=== PATIENT | female | born 1955 | race Caucasian/White ===

== ENCOUNTER 2022-10-29 09:23 | Observation (INO) ==
[2022-10-29] MEDS ORDERED: NITROGLYCERIN SL 0.4 MG TABLET SL PRN (10:06)
[2022-10-29] MEDS ORDERED: ASPIRIN 325 MG TABLET PO STA (10:06)
[2022-10-29 11:36] LABS: Basophils # 0.1 10*3/uL (0.0-0.2); Basophils % 0.4 % (0.0-0.8); Hematocrit 39.1 VOL% (35.7-47.0); Hemoglobin 13.2 GM/DL (12.0-16.0); Immature Granulocytes % 0.4 %; Immature Granulocytes Absolute 0.07 #; Lymphocytes # 1.6 10*3/uL (1.4-4.0); Lymphocytes % 10.1 % (21.3-54.2); Mean Corpuscular HGB Conc 33.8 GM/DL (32-36); Mean Corpuscular Volume 90.1 FL (87-102); Mean Platelet Volume 10.6 FL (9.6-12.0); Monocytes # 1.1 10*3/uL (0.11-0.8); Monocytes % 7.2 % (1.7-12.7); Neutrophils % 81.9 % (38.7-73.9); Platelet Count 212 T/CUMM (130-400); Red Blood Count 4.34 MC/CUMM (3.8-5.5); Red Cell Distribution Width 13.9 % (9.3-17.3); White Blood Count 15.8 T/CUMM (4-12)
[2022-10-29 11:51] LABS: PT Patient Result 10.8 SECS (10.1-12.1); Partial Thromboplastin Time 22.2 SECS (23.7-32.9)
[2022-10-29 11:54] LABS: Calcium 8.9 MG/DL (8.5-10.1); Osmolality,Calculated 281.3 MOS/KG (273-304); Potassium 3.5 MMOL/L (3.5-5.1)
[2022-10-29] MEDS ORDERED: ENOXAPARIN 40 MG/0.4 ML SYRINGE SUBCUT STA (12:18)
[2022-10-29] MEDS ORDERED: ONDANSETRON 4 MG/2 ML VIAL IV PRN (13:03)
[2022-10-29] MEDS ORDERED: ACETAMINOPHEN 325 MG TABLET PO PRN (13:03)
[2022-10-29] MEDS ORDERED: hydrALAZINE 20 MG/1 ML VIAL IV PRN (13:03)
[2022-10-29] MEDS ORDERED: MORPHINE 2 MG/1 ML SYRINGE IV PRN (13:03)
[2022-10-29] MEDS ORDERED: ALBUTEROL/IPRATROPIUM 3 ML NEB RESP TX PRN (13:03)
[2022-10-29] MEDS ORDERED: MAGNESIUM SULF RIDER 2 GM/50 ML PREMIX IV ONE (14:21)
[2022-10-29] MEDS: METOPROLOL TARTRATE 25 MG TABLET PO SCH ×2 (17:05→22:46)
[2022-10-29] MEDS: ENOXAPARIN 40 MG/0.4 ML SYRINGE SUBCUT SCH (22:46)
[2022-10-29] MEDS: ROSUVASTATIN 20 MG TABLET PO SCH (22:46)
[2022-10-30] MEDS: METOPROLOL TARTRATE 25 MG TABLET PO SCH ×3 (04:11→20:15)
[2022-10-30 06:35] LABS: Basophils # 0.1 10*3/uL (0.0-0.2); Eosinophils # 0.1 10*3/uL (0.0-0.87); Eosinophils % 0.9 % (0.00-10.9); Hematocrit 38.8 VOL% (35.7-47.0); Immature Granulocytes % 0.2 %; Immature Granulocytes Absolute 0.02 #; Lymphocytes # 2.5 10*3/uL (1.4-4.0); Lymphocytes % 25.8 % (21.3-54.2); Mean Corpuscular HGB Conc 33.5 GM/DL (32-36); Mean Corpuscular Volume 91.5 FL (87-102); Monocytes # 0.8 10*3/uL (0.11-0.8); Neutrophils % 64.1 % (38.7-73.9); Platelet Count 209 T/CUMM (130-400); Red Blood Count 4.24 MC/CUMM (3.8-5.5); White Blood Count 9.6 T/CUMM (4-12)
[2022-10-30 07:22] LABS: Calcium 8.8 MG/DL (8.5-10.1); Osmolality,Calculated 282.1 MOS/KG (273-304); Potassium 4.1 MMOL/L (3.5-5.1); Risk Ratio 1.04; Thyroid Stimulating Hormone 0.668 uIU/ml (0.358-3.74)
[2022-10-30] MEDS ORDERED: ENOXAPARIN 40 MG/0.4 ML SYRINGE SUBCUT SCH (09:00)
[2022-10-30] MEDS: NICOTINE 21 MG/24 HR PATCH TRANSDERM SCH (09:16)
[2022-10-30] MEDS: ENOXAPARIN 40 MG/0.4 ML SYRINGE SUBCUT SCH ×2 (09:18→20:08)
[2022-10-30] MEDS: ASPIRIN CHEW 81 MG TABLET PO SCH (09:18)
[2022-10-30] MEDS: PANTOPRAZOLE 40 MG TABLET PO SCH (09:18)
[2022-10-30] MEDS ORDERED: DIAZEPAM 5 MG TABLET PO ONE (11:16)
[2022-10-30] MEDS ORDERED: diphenhydrAMINE CAP 50 MG CAPSULE PO ONE (11:16)
[2022-10-30] MEDS ORDERED: POTASSIUM CHLORIDE RIDER 10 MEQ/100 ML PREMIX IV PRN (11:16)
[2022-10-30] MEDS ORDERED: MAGNESIUM SULF RIDER 2 GM/50 ML PREMIX IV PRN (11:16)
[2022-10-30] MEDS: SODIUM CHLORIDE 0.9% 1,000 ML IV SCH ×2 (11:27→16:10)
[2022-10-30] MEDS ORDERED: MIDAZOLAM 2 MG/2 ML VIAL ONE (11:42)
[2022-10-30] MEDS ORDERED: HYDROmorphone 1 MG/1 ML SYRINGE ONE (11:43)
[2022-10-30] MEDS: ROSUVASTATIN 20 MG TABLET PO SCH (20:08)
[2022-10-31 05:40] LABS: Basophils # 0.1 10*3/uL (0.0-0.2); Basophils % 1.1 % (0.0-0.8); Eosinophils # 0.2 10*3/uL (0.0-0.87); Eosinophils % 2.1 % (0.00-10.9); Hematocrit 37.1 VOL% (35.7-47.0); Hemoglobin 11.9 GM/DL (12.0-16.0); Immature Granulocytes % 0.3 %; Immature Granulocytes Absolute 0.02 #; Lymphocytes % 27.9 % (21.3-54.2); Mean Corpuscular HGB Conc 32.1 GM/DL (32-36); Mean Corpuscular Volume 93.7 FL (87-102); Mean Platelet Volume 11.4 FL (9.6-12.0); Monocytes # 0.6 10*3/uL (0.11-0.8); Neutrophils % 60.6 % (38.7-73.9); Platelet Count 184 T/CUMM (130-400); Red Blood Count 3.96 MC/CUMM (3.8-5.5); Red Cell Distribution Width 14.2 % (9.3-17.3); White Blood Count 7.1 T/CUMM (4-12)
[2022-10-31 06:03] LABS: Calcium 8.8 MG/DL (8.5-10.1); Osmolality,Calculated 288.7 MOS/KG (273-304); Potassium 3.9 MMOL/L (3.5-5.1)
[2022-10-31] MEDS ORDERED: DEXTROSE 10% 250 ML BAG IV PRN (07:05)
[2022-10-31] MEDS: SODIUM CHLORIDE 0.9% 1,000 ML IV SCH (08:50)
[2022-10-31] MEDS ORDERED: LOSARTAN 25 MG TABLET PO SCH (09:00)
[2022-10-31] MEDS ORDERED: predniSONE 5 MG TABLET PO SCH (09:00)
[2022-10-31] MEDS ORDERED: LEFLUNOMIDE 20 MG PO SCH (09:00)
[2022-10-31] MEDS: NICOTINE 21 MG/24 HR PATCH TRANSDERM SCH (09:03)
[2022-10-31] MEDS: PANTOPRAZOLE 40 MG TABLET PO SCH (09:05)
[2022-10-31] MEDS: ASPIRIN CHEW 81 MG TABLET PO SCH (09:05)
[2022-10-31] MEDS: METOPROLOL TARTRATE 25 MG TABLET PO SCH (09:06)
[2022-10-31] MEDS: ENOXAPARIN 40 MG/0.4 ML SYRINGE SUBCUT SCH (09:06)
[2022-10-31] MEDS ORDERED: APIXABAN 2.5 MG TABLET PO SCH (10:30)
[2022-10-31] MEDS ORDERED: CLOPIDOGREL 75 MG TABLET PO SCH (10:30)
[2022-10-31 12:01] VITALS: BP 90/62
[2022-11-01] MEDS ORDERED: DAPAGLIFLOZIN 10 MG TABLET PO SCH (09:00)
== END 2022-10-31 14:55 | disposition home or self-care (01) ==
LOC: N.ED 09:23 → INTOOBSV 13:03 → N.EDINP 13:03 → SUATTDRO 13:03 → N.EDINP 14:15 → N.2W 14:36
PROVIDERS: ADMIT Internal Medicine Geriatric Medicine; ATTEND Internal Medicine
PROC: CLCCHCL (ICD-10-PCS; 2022-10-30 12:15)